=== PATIENT | female | born 1950 | race Caucasian/White ===

== ENCOUNTER → 2017-08-11 11:11 | Outpatient (CLI) | payer MEDICARE, SELFPAY ==
[2017-08-11 12:27] LABS: Absolute Lymphocyte Count 2.14 X10^3/ul (0.83-4.51); Basophil# 0.04 X10^3/uL; Basophil% 0.7 % (0-1); Eosinophil# 0.07 X10^3/uL; Eosinophils% 1.2 % (0-5); Hematocrit 41.2 % (37-47); Hemoglobin 13.8 g/dl (12.0-15.0); Lymphocyte # 2.14 X10^3/ul (4.0); Lymphocyte % 37.1 % (19-41); Mean Corp Hgb Conc 33.5 g/gl (32-36); Mean Corpuscular Hgb 31.4 pg (27.0-32.0); Mean Corpuscular Volume 93.8 fL (81-99); Mean Platelet Vol. 10.4 fl (6.2-12.0); Monocyte# 0.56 X10^3/uL; Monocyte% 9.7 % (0-10); Neutrophil # 2.96 X10^3/uL (2.7-7.7); Neutrophil % 51.3 % (47-70); POSITIVE COUNT NO; POSITIVE DIFFERENTIAL NO; POSITIVE MORPHOLOGY NO; Platelet Count 267 K/mm3 (150-450); RBC Distribution Width CV 12.1 % (11.6-14.6); RBC Distribution Width SD 40.7 fl (35.1-43.9); Red Blood Count 4.39 M/mm3 (4.2-5.4); White Blood Count 5.8 K/mm3 (4.4-11.0)
[2017-08-11 12:43] LABS: Vitamin B12 705 pg/mL (211-911); Vitamin D,25 Hydroxy 22.4 ng/mL (19.95-100.01)
[2017-08-11 12:58] LABS: AST(SGOT) 20 U/L (15-37); Alanine Aminotransfer ALT/SGPT 23 U/L (13-56); Albumin, Serum 3.8 g/dL (3.2-5.0); Alkaline Phosphatase 32 U/L (45-117); Anion Gap 8 (5-15); BUN 17 mg/dL (7-18); BUN/Creat Ratio 26.1 RATIO (10-20); Calcium,Total 8.9 mg/dL (8.5-10.1); Chloride 105 mmol/L (98-107); Cholesterol 178 mg/dL (200); Creatinine, Serum 0.65 mg/dL (0.55-1.02); EST Glomerular Filtration Rate 97 mL/min (>60); Est Glom Filt Rate - Afr Amer 117 mL/min (>60); Ferritin 55 ng/mL (8-252); Globulin 3.9 g/dL (2.2-4.2); Glucose 89 mg/dL (74-106); High Density Lipoprotein 41 mg/dL; Potassium 4.3 mmol/L (3.5-5.1); Protein, Total 7.7 g/dL (6.4-8.2); Sodium Level 141 mmol/L (136-145); Triglycerides 198 mg/dL; Very Low Density Lipoprotein 40 mg/dL (5-40)
== END ==
PROVIDERS: Family Provider Family Medicine; PCP Family Medicine; Visit Provider Family Medicine
DX: Z00.00 Encounter for general adult medical examination without abnormal findings (principal); Z78.9 Other specified health status; E55.9 Vitamin D deficiency, unspecified
CPT/HCPCS: 80053; 80061; 82306; 82607; 82728; 85025

== ENCOUNTER → 2018-04-08 15:32 | Outpatient (CLI) | payer MEDICARE, BC, SELFPAY ==
--- NOTE | 2018-04-08 15:58 | RAD_ITS ---
STUDY: X-RAY CHEST REASON FOR EXAM: Female, 67 years old. Dizziness TECHNIQUE: Frontal and lateral views of the chest COMPARISON: None. FINDINGS: The lungs are hyperinflated, but clear. There are no pleural effusions. There is no pneumothorax. The heart is normal in size. The visualized osseous structures are within normal limits. RAD/Chest PA and Lateral IMPRESSION: No acute thoracic pathology. Electronically Signed: Reuben Le, at 17:14 EDT Tel , Service support ,
[2018-04-08 17:16] LABS: Absolute Lymphocyte Count 2.13 X10^3/ul (0.83-4.51); Absolute Neutrophil Count 5.3 X10^3/uL (2.0-7.7); Basophil# 0.04 X10^3/uL; Basophil% 0.5 % (0-1); Eosinophil# 0.03 X10^3/uL; Eosinophils% 0.4 % (0-5); Hematocrit 39.9 % (37-47); Hemoglobin 13.1 g/dl (12.0-15.0); Lymphocyte # 2.13 X10^3/ul (4.0); Lymphocyte % 26.8 % (19-41); Mean Corp Hgb Conc 32.8 g/gl (32-36); Mean Corpuscular Hgb 31.1 pg (27.0-32.0); Mean Corpuscular Volume 94.8 fL (81-99); Mean Platelet Vol. 9.9 fl (6.2-12.0); Monocyte# 0.44 X10^3/uL; Monocyte% 5.5 % (0-10); Neutrophil % 66.7 % (47-70); Platelet Count 278 K/mm3 (150-450); RBC Distribution Width CV 12.4 % (11.6-14.6); RBC Distribution Width SD 42.6 fl (35.1-43.9); Red Blood Count 4.21 M/mm3 (4.2-5.4)
[2018-04-08 17:25] LABS: POSITIVE COUNT NO; POSITIVE DIFFERENTIAL NO; POSITIVE MORPHOLOGY NO
[2018-04-08 17:33] LABS: AST(SGOT) 17 U/L (15-37); Alanine Aminotransfer ALT/SGPT 18 U/L (13-56); Albumin, Serum 3.7 g/dL (3.2-5.0); Alkaline Phosphatase 33 U/L (45-117); Anion Gap 7 (5-15); BUN 20 mg/dL (7-18); BUN/Creat Ratio 30.4 RATIO (10-20); Calcium,Total 8.9 mg/dL (8.5-10.1); Chloride 106 mmol/L (98-107); Creatinine, Serum 0.66 mg/dL (0.55-1.02); EST Glomerular Filtration Rate 96 mL/min (>60); Est Glom Filt Rate - Afr Amer 116 mL/min (>60); Globulin 3.8 g/dL (2.2-4.2); Glucose 85 mg/dL (74-106); Magnesium 2.2 mg/dL (1.6-2.6); Protein, Total 7.5 g/dL (6.4-8.2); Sodium Level 141 mmol/L (136-145)
[2018-04-30 17:41] LABS: 5-HIAA, UR 3.7 mg/L (Undefined)
[2018-05-01 15:11] LABS: 5-HIAA, 24UR 2.6 mg/24 hr (0.0-14.9)
== END ==
PROVIDERS: Family Provider Family Medicine; PCP Family Medicine; Referring Provider Family Medicine; Visit Provider Family Medicine
DX: R42 Dizziness and giddiness (principal); R23.2 Flushing
CPT/HCPCS: 36415; 71046; 80053; 83497; 83735; 84443; 85025

== ENCOUNTER → 2018-04-23 10:48 | Outpatient (CLI) | payer MEDICARE, BC, SELFPAY ==
--- NOTE | 2018-04-23 10:49 | ECHOD_ITS ---
Reason For Study: arrhythmia Procedure This was a 2D Doppler, Color Flow transthoracic echocardiogram. Exam performed in department. Left Ventricle Normal LV size. Left ventricular systolic function is normal. The estimated ejection fraction is 55 %. Normal diastology for age. No regional wall motion abnormalities noted. Right Ventricle Normal RV size. Normal systolic function. Atria Normal left atrium. Normal right atrium. Mitral Valve Normal mitral valve. Tricuspid Valve Normal tricuspid valve. Mild tricuspid valve insufficiency. Pulmonary artery systolic pressure is 20 mmHg. Aortic Valve Normal aortic valve. Trisinus/trileaflet aortic valve. Pulmonic Valve Normal pulmonic valve. Great Vessels Normal aortic root. The pulmonary artery is normal size. Normal inferior vena cava. Pericardium/Pleural No pericardial effusion. MMode/2D Measurements & Calculations LVIDd: 3.8 cm IVSd: 0.88 cm Ao root diam: 2.8 cm LVIDs: 2.4 cm LVPWd: 0.92 cm LA dimension: 2.6 cm RVDd: 3.1 cm FS: 36.5 % LAV(MOD-bp): 32.4 ml LA A4 area: 13.2 cm2 RA A4 area: 12.5 cm2 LAV(MOD-bp) Indexed: 20.1 ml/m2 LAV(MOD-sp2): 32.5 ml LAV(MOD-sp4): 32.1 ml Doppler Measurements & Calculations MV E max reji: 75.9 cm/sec Lat Peak E' Reji: 9.3 cm/sec Med Peak E' Reji: 9.9 cm/sec MV A max reji: 58.6 cm/sec E/E' lat: 8.2 E/E' med: 7.6 MV E/A: 1.3 Ao V2 max: 94.3 cm/sec LV V1 max: 83.7 cm/sec PA V2 max: 72.5 cm/sec Ao max P.6 mmHg LV V1 max P.8 mmHg TR max reji: 206.9 cm/sec TR max P.1 mmHg Interpretation Summary Normal LV size. Left ventricular systolic function is normal. The estimated ejection fraction is 55 %. Normal diastology for age. Structurally normal valves. Ordering Physician: Maik Tapia Referring Physician: aMsood Cornejo Performed By: Kadie Juarez, RDCS, RVT
== END ==
PROVIDERS: Family Provider Family Medicine; PCP Family Medicine; Referring Provider Internal Medicine Cardiovascular Disease; Visit Provider Internal Medicine Cardiovascular Disease
DX: R55 Syncope and collapse (principal)
CPT/HCPCS: 93306

== ENCOUNTER 2018-07-22 10:03 | Emergency (ER) | payer MEDICARE, BC, SELFPAY ==
[2018-07-22 10:04] VITALS: BP 146/64; PULSE 137; RESP 16; TEMP 36.9; O2SAT 96; BMI 20.5
--- NOTE | 2018-07-22 10:34 | ED.VISSUMM ---
- ER Visit Summary Date of Service: 07/22/18 Chief Complaint: Aspirated a pill History of Present Illness: The patient is a 68 F she was taken vitamins. She has only aspirated 1 of the pills in her lung. Said it was irritating and eventually she coughs it up basically whole other than it dissolved small amount. Currently says he feels much better. Denies any chest pain. No shortness of breath. Physical Examination: Well-appearing older female. Vital signs are stable. She is afebrile. Initially her pulse was elevated she says she felt anxious. HEENT exam unremarkable. Posterior pharynx normal. Neck nontender. No lymphadenopathy. Lungs clear to auscultation bilaterally. No rales, rhonchi or wheezing. No distress. Heart regular rhythm rate about 120 no murmur. Abdomen soft and nontender. Normal bowel sounds no peritoneal signs. Remedies moves all 4. No edema. Neurologically she is awake and alert. No focal motor deficits. Test Results: Normal sinus rhythm rate of 76 no acute process. Emergency Department Course and Treatment: Patient was tachycardic when she arrived. Most likely with some anxiety. The tachycardia seemed to resolve. We did obtain EKG which was unremarkable. Treatment Plan: Follow-up with your doctor as needed Disposition: Discharge Impression: Acute pill aspiration resolved with coughing This note was generated with [employer] dictation software. It may contain incorrect words, spelling, and punctuation that were not noted in review of the chart prior to signing ED Disposition - Plan for ED Patient: Chief Complaint: Foreign Body Referrals: Masood Cornejo MD [Primary Care Provider] -
--- NOTE | 2018-07-22 10:40 | ED.DCSUM_ITS ---
- ER Visit Summary Date of Service: 07/22/18 Chief Complaint: Aspirated a pill History of Present Illness: The patient is a 68 F she was taken vitamins. She has only aspirated 1 of the pills in her lung. Said it was irritating and eventually she coughs it up basically whole other than it dissolved small a mount. Currently says he feels much better. Denies any chest pain. No shortness of breath. Physical Examination: Well-appearing older female. Vital signs are stable. She is afebrile. Initially her pulse was elevated she says she felt anxious. HEENT exam unremarkable. Posterior pharynx normal. Neck nontender. No lymphadenopathy. Lungs clear to auscultation bilaterally. No rales, rhonchi or wheezing. No distress. Heart regular rhythm rate about 120 no murmur. Abdomen soft and nontender. Normal bowel sounds no peritoneal signs. Remedies moves all 4. No edema. Neurologically she is awake and alert. No focal motor deficits. Test Results: Normal sinus rhythm rate of 76 no acute process. Emergency Department Course and Treatment: Patient was tachycardic when she arrived. Most likely with some anxiety. The tachycardia seemed to resolve. We did obtain EKG which was unremarkable. Treatment Plan: Follow-up with your doctor as needed Disposition: Discharge Impression: Acute pill aspiration resolved with coughing This note was generated with [employer] dictation software. It may contain incorrect words, spelling, and punctuation that were not noted in review of the chart prior to signing ED Disposition - Plan for ED Patient: Chief Complaint: Foreign Body Referrals: Masood Cornejo MD [Primary Care Provider] -
--- NOTE | 2018-07-22 10:40 | EKG12_ITS ---
Test Reason : TACHYCARDIA Blood Pressure : / mmHG Vent. Rate : 076 BPM Atrial Rate : 076 BPM P-R Int : 152 ms QRS Dur : 074 ms QT Int : 384 ms P-R-T Axes : 074 075 068 degrees QTc Int : 432 ms Normal sinus rhythm Normal ECG Confirmed by HUY GALVAN, JENNIFER ([id number]), photograph editor NESSA PLEITEZ ([id number]) on 07/27/2018 9:08:32 AM Referred By: SAROJ Confirmed By:JENNIFER SON MD
[2018-07-22 11:06] VITALS: BP 121/59; PULSE 77; RESP 15; O2SAT 99
--- NOTE | 2018-07-22 11:06 | ED.DEP ---
ED Disposition - Plan for ED Patient: Disposition: Home or Assisted Living Chief Complaint: Foreign Body Instructions: ED Obstruction Airway Removed Referrals: Masood Cornejo MD [Primary Care Provider] - As Needed Additional Instructions: Follow-up with your doctor as needed.
--- OUTSIDE RECORDS SUMMARY | 2018-09-26 07:27 | XMS RPT_ITS ---
:1950 Author Organization OHIP Care Team Providers Name Role Phone Cornejo, Masood Primary Care Unavailable Kingsley Mccormack Attending Unavailable Cornejo, Masood Attending Unavailable Cornejo, Masood Primary Care Unavailable Regina, [place] Attending Unavailable Cornejo, Masood Referring Unavailable Cornejo, Masood Attending Unavailable Cornejo, Masood Referring Unavailable Cornejo, Masood Primary Care Unavailable Regina, Maik Attending Unavailable Regina, [place] Referring Unavailable Cornejo, Masood Primary Care Unavailable Regina, Maik Attending Unavailable Regina, Maik Referring Unavailable Cornejo, Masood Primary Care Unavailable Regina, [place] Consulting Unavailable PROBLEMS PROBLEMS DATE TYPE CONDITION / CODE ATTENDING STATUS SOURCE 04/23/2018 Unknown R55 - Syncope and Regina, [place] Active [facility] collapse / Community R55(ICD-10) Hospital Repository 04/08/2018 Unknown R42 - Dizziness Cornejo, Masood Active [facility] and giddiness / Community R42(ICD-10) Hospital Repository 04/08/2018 Unknown R00.2 - Maik Son Active [facility] Palpitations / Community R00.2(ICD-10) Hospital Repository PROCEDURES PROCEDURES No Procedure Records FoundRESULTS RESULTS 12 LEAD ELECTROCARDIOGRAM Observed: 07/27/2018 Status: F Source: [place] 9:08 AM [facility] Cardiovascular Services [address] [place] [address] 12 Lead EKG 07/22/18 1101 MR#: [id number] Acct: [id number] Name: GABRIELLE SCHWARTZ Rep #: [id number] : 1950 68 From: Maik Son MD Attending Dr: Status: DEP ER Ordering Dr: Kingsley Mccormack MD Date: 07/22/18 Location: ED Sex: F C Admitted: Test Reason : TACHYCARDIA Blood Pressure : / mmHG Vent. Rate : 076 BPM Atrial Rate : 076 BPM P-R Int : 152 ms QRS Dur : 074 ms QT Int : 384 ms P-R-T Axes : 074 075 068 degrees QTc Int : 432 ms Normal sinus rhythm Normal ECG Confirmed by MAIK SON MD ([id number]), editor newspaper NESSA PLEITEZ ([id number]) on 07/27/2018 9:08:32 AM Referred By: SAROJ Confirmed By:MAIK SON MD 07/27/18 0908 Date Maik Son MD CC: Masood Cornejo MD; Kingsley Mccormack MD Signed EMERGENCY DEPARTMENT Observed: 07/22/2018 Status: F Source: [place] SUMMARY 4:04 PM [facility] Medical Records Department [address] [place] [address] Emergency Department Summary 07/22/18 1034 MR#: [id number] Acct: [id number] Name: GABRIELLE SCHWARTZ Rep #: [id number] : 1950 68 From: Kingsley Mccormack MD PCP: Masood Cornejo MD Status: DEP ER - ER Visit Summary Date of Service: 07/22/18 Chief Complaint: Aspirated a pill History of Present Illness: The patient is a 68 F she was taken vitamins. She has only aspirated 1 of the pills in her lung. Said it was irritating and eventually she coughs it up basically whole other than it dissolved small amount. Currently says he feels much better. Denies any chest pain. No shortness of breath. Physical Examination: Well-appearing older female. Vital signs are stable. She is afebrile. Initially her pulse was elevated she says she felt anxious. HEENT exam unremarkable. Posterior pharynx normal. Neck nontender. No lymphadenopathy. Lungs clear to auscultation bilaterally. No rales, rhonchi or wheezing. No distress. Heart regular rhythm rate about 120 no murmur. Abdomen soft and nontender. Normal bowel sounds no peritoneal signs. Remedies moves all 4. No edema. Neurologically she is awake and alert. No focal motor deficits. Test Results: Normal sinus rhythm rate of 76 no acute process. Emergency Department Course and Treatment: Patient was tachycardic when she arrived. Most likely with some anxiety. The tachycardia seemed to resolve. We did obtain EKG which was unremarkable. Treatment Plan: Follow-up with your doctor as needed Disposition: Discharge Impression: Acute pill aspiration resolved with coughing This note was generated with 22seeds dictation software. It may contain incorrect words, spelling, and punctuation that were not noted in review of the chart prior to signing ED Disposition - Plan for ED Patient: Chief Complaint: Foreign Body Referrals: Masood Cornejo MD [Primary Care Provider] - What to do if you have Problems For any increased pain, shortness of breath, bleeding, nausea or vomiting, chest pain, or any unexpected problems, contact your Primary Care Provider. Call [facility] ([phone]) or report to the closest Emergency Room. Call 911 if necessary. 07/22/18 1604 <Electronically signed by Kingsley Mccormack MD> Date Kingsley Mccormack MD Cosigner Signature (If Indicated): Date CC: Masood Cornejo MD DISCHARGE INSTRUCTION Observed: 07/22/2018 Status: F Source: [place] 4:04 PM [facility] [place] [facility] Medical Records Department [address] [address] Discharge Instruction 07/22/18 1106 MR#: [id number] Acct: [id number] Name: GABRIELLE SCHWARTZ Rep #: [id number] : 1950 68 From: Kingsley Mccormack MD PCP: Masood Cornejo MD Status: DEP ER ED Disposition - Plan for ED Patient: Disposition: Home or Assisted Living Chief Complaint: Foreign Body Instructions: ED Obstruction Airway Removed Referrals: Masood Cornejo MD [Primary Care Provider] - As Needed Additional Instructions: Follow-up with your doctor as needed. What to do if you have Problems For any increased pain, shortness of breath, bleeding, nausea or vomiting, chest pain, or any unexpected problems, contact your Primary Care Provider. Call [facility] ([phone]) or report to the closest Emergency Room. Call 911 if necessary. 07/22/18 1604 <Electronically signed by Kingsley Mccormack MD> Date Kingsley Mccormack MD Cosigner Signature (If Indicated): Date CC: Masood Cornejo MD 5-HIAA 24 HR UR Collected: 04/26/2018 Status: F Source: [place] 7:30 AM [facility] [place] TYPE CODE TESTS RESULT OUT OF RANGE REFERENCE UNITS LAB L3600.2600 Undefined mg/L Normal 5-HIAA,UR 3.7 LAB L3600.2700 0.0-14.9 mg/24 hr Normal 2.6 5-HIAA,U24 Result Comment: This test was developed and its performance characteristics determined by [facility]. It has not been cleared or approved by the Food and Drug Administration. Performed at: [address], [place], [place] [id number] [employer] Sales Unit Sales Leader: Garett Alvarez MD, Phone: [phone] Performed By: #### L3600.2500 #### [facility] (refer to report for specific site) refer to report for address and phone number ECHOCARDIOGRAM COMPLETE Observed: 04/23/2018 Status: F Source: [place] 1:07 PM [facility] [place] [facility] Cardiovascular Services [address] [place] [address] Echo Complete 04/23/18 1051 MR#: [id number] Acct: [id number] Name: GABRIELLE SCHWARTZ Rep #: [id number] : 1950 67 From: Maik Son MD Attending Dr: Maik Son MD Status: REG CLI Ordering Dr: Maik Son MD Date: 04/23/18 Location: [facility] Sex: F C Admitted: Reason For Study: arrhythmia Procedure This was a 2D Doppler, Color Flow transthoracic echocardiogram. Exam performed in department. Left Ventricle Normal LV size. Left ventricular systolic function is normal. The estimated ejection fraction is 55 %. Normal diastology for age. No regional wall motion abnormalities noted. Right Ventricle Normal RV size. Normal systolic function. Atria Normal left atrium. Normal right atrium. Mitral Valve Normal mitral valve. Tricuspid Valve Normal tricuspid valve. Mild tricuspid valve insufficiency. Pulmonary artery systolic pressure is 20 mmHg. Aortic Valve Normal aortic valve. Trisinus/trileaflet aortic valve. Pulmonic Valve Normal pulmonic valve. Great Vessels Normal aortic root. The pulmonary artery is normal size. Normal inferior vena cava. Pericardium/Pleural No pericardial effusion. MMode/2D Measurements AND Calculations LVIDd: 3.8 cm IVSd: 0.88 cm Ao root diam: 2.8 cm LVIDs: 2.4 cm LVPWd: 0.92 cm LA dimension: 2.6 cm RVDd: 3.1 cm FS: 36.5 % LAV(MOD-bp): 32.4 ml LA A4 area: 13.2 cm2 RA A4 area: 12.5 cm2 LAV(MOD-bp) Indexed: 20.1 ml/m2 LAV(MOD-sp2): 32.5 ml LAV(MOD-sp4): 32.1 ml Doppler Measurements AND Calculations MV E max reji: 75.9 cm/sec Lat Peak E' Reji: 9.3 cm/sec Med Peak E' Reji: 9.9 cm/sec MV A max reji: 58.6 cm/sec E/E' lat: 8.2 E/E' med: 7.6 MV E/A: 1.3 Ao V2 max: 94.3 cm/sec LV V1 max: 83.7 cm/sec PA V2 max: 72.5 cm/sec Ao max P.6 mmHg LV V1 max P.8 mmHg TR max reji: 206.9 cm/sec TR max P.1 mmHg Interpretation Summary Normal LV size. Left ventricular systolic function is normal. The estimated ejection fraction is 55 %. Normal diastology for age. Structurally normal valves. Ordering Physician: Maik Son Referring Physician: Masood Cornejo Performed By: Kadie Juarez, RDCS, RVT 04/23/18 1306 Date Maik Son MD CC: Maik Son MD; Masood Cornejo MD Date Dictated: 04/23/18 1051 Date Transcribed: 04/23/18 1306 Auto Dealer: Signed CHEST PA AND LATERAL Observed: 04/08/2018 Status: F Source: [place] 3:58 PM [facility] [place] [facility] Imaging Services [address] [place] [address] Chest PA and Lateral MR#: [id number] Acct: [id number] Name: GABRIELLE SCHWARTZ Rep #: [id number] : 1950 F 67 From: Reuben Le MD PCP: Masood Cornejo MD Status: REG CLI Study: Chest PA and Lateral Date of Exam: 04/08/18 Exam# [id number] Ordering Dr: Masood Cornejo MD STUDY: X-RAY CHEST REASON FOR EXAM: Female, 67 years old. Dizziness TECHNIQUE: Frontal and lateral views of the chest COMPARISON: None. FINDINGS: The lungs are hyperinflated, but clear. There are no pleural effusions. There is no pneumothorax. The heart is normal in size. The visualized osseous structures are within normal limits. RAD/Chest PA and Lateral IMPRESSION: No acute thoracic pathology. Electronically Signed: Reuben Le, at 17:14 EDT Tel , Service support , CC: Masood Cornejo MD Auto Dealer: Signed CBC W/DIFF, AUTOMATED Collected: 04/08/2018 Status: F Source: [place] 3:44 PM [facility] [place] TYPE CODE TESTS RESULT OUT OF RANGE REFERENCE UNITS LAB L100.1000 4.4-11.0 K/mm3 Normal WBC 8.0 LAB L100.1200 4.2-5.4 M/mm3 Normal RBC 4.21 LAB L100.1300 12.0-15.0 g/dl Normal HGB 13.1 LAB L100.1400 37-47 % Normal HCT 39.9 LAB L100.1500 81-99 fL Normal MCV 94.8 LAB L100.1600 27.0-32.0 pg Normal MCH 31.1 LAB L100.1700 32-36 g/gl Normal MCHC 32.8 LAB L100.1810 11.6-14.6 % Normal RDW CV 12.4 LAB L100.1820 35.1-43.9 fl Normal RDW SD 42.6 LAB L100.1900 150-450 K/mm3 Normal PLT 278 LAB L100.2000 6.2-12.0 fl Normal MPV 9.9 LAB L100.2100 47-70 % Normal NEUT% 66.7 LAB L100.2200 19-41 % Normal LY% 26.8 LAB L100.2300 0-10 % Normal MONO% 5.5 LAB L100.2400 0-5 % Normal EO% 0.4 LAB L100.2500 0-1 % Normal BASO% 0.5 LAB L100.2550 0.0-0.9 % Normal IM GRAN % 0.100 Result Comment: IG% - Immature Granulocytes (promyelocytes, myelocytes and metamyelocytes) > 1% indicates that a LEFT SHIFT is Present. LAB L100.2620 2.0-7.7 X10 3/uL Normal Absolute Neut 5.3 LAB L100.2720 0.83-4.51 X10 3/ul Normal Absolute Lymph 2.13 Performed By: #### L100.0100 #### [facility] [place], [address] COMPREHENSIVE METABOLIC Collected: 04/08/2018 Status: F Source: [place] 3:44 PM [facility] [place] TYPE CODE TESTS RESULT OUT OF RANGE REFERENCE UNITS LAB L501.0100 74-106 mg/dL Normal GLU 85 Result Comment: Please note revised GLUCOSE reference range effective 2017. LAB L501.1000 7-18 mg/dL High BUN 20 LAB L501.1100 0.55-1.02 mg/dL Normal CREAT,SERUM 0.66 Result Comment: The validity of the calculated GFR AND GFRAA in patients over 70 years has not been determined. Clinical correlation is essential. LAB L501.1110 >60 mL/min Normal EST GFR 96 Result Comment: Non- GFR Calc LAB L501.1115 >60 mL/min Normal EST GFR - AA 116 Result Comment: GFR Calc LAB L501.1300 10-20 RATIO High BUN/CRE 30.4 LAB L501.1500 6.4-8.2 g/dL T Normal PROT 7.5 LAB L501.1800 3.2-5.0 g/dL Normal ALB 3.7 LAB L501.1950 2.2-4.2 g/dL Normal GLOB 3.8 LAB L501.2000 0.9-2.4 RATIO Normal A/G 1.0 LAB L501.2200 8.5-10.1 mg/dL CA Normal 8.9 LAB L501.4100 15-37 U/L Normal AST 17 LAB L501.4305 45-117 U/L Low ALK P 33 LAB L501.4405 13-56 U/L Normal ALT 18 LAB L501.4600 0.20-1.00 mg/dL T Normal BILI 0.30 LAB L501.5300 136-145 mmol/L NA Normal 141 LAB L501.5600 3.5-5.1 mmol/L K Normal 4.0 LAB L501.5900 98-107 mmol/L CL Normal 106 LAB L501.6100 21.0-32.0 mmol/L Normal CO2 28.0 LAB L501.6200 5-15 Normal GAP 7 Performed By: #### L500.4050, L501.5200, L501.9520 #### [facility] [address] [place], [address] MAGNESIUM Collected: 04/08/2018 Status: F Source: [place] 3:44 PM [facility] [place] TYPE CODE TESTS RESULT OUT OF RANGE REFERENCE UNITS LAB L501.5200 1.6-2.6 mg/dL Normal MG 2.2 Performed By: #### L500.4050, L501.5200, L501.9520 #### [facility] [address] [place], [address] THYROID STIM HORMONE Collected: 04/08/2018 Status: F Source: [place] (TSH) 3:44 PM [facility] [place] [facility] TYPE CODE TESTS RESULT OUT OF RANGE REFERENCE UNITS LAB L501.9520 0.358-3.74 uIU/mL Normal TSH 1.00 Performed By: #### L500.4050, L501.5200, L501.9520 #### [facility] [address] [place], [address] CARDIOLOGY VISIT Observed: 04/08/2018 Status: F Source: [place] REPORT 3:16 PM [facility] [place] [facility] [address] [place] [address] OFFICE VISIT Date of Service: 04/08/18 MR#: [id number] Acct: [id number] Name: GABRIELLE SCHWARTZ Rep #: [id number] : 1950 Provider: Maik Son MD Age/Sex: 67/F Location: [facility] [place] Status: Signed HPI HPI Chief Complaint: Initial visit Details: GABRIELLE SCHWARTZ, is a 67 F who presents to the office today for an initial visit. She is a pleasant lady with no previous cardiac symptoms who has had 2 episodes of dizziness near fainting spells as well as associated with the flushing of her face. She says this lasts approximately 30 seconds. It happens once while she was driving. There is usually no chest pain or paroxysmal nocturnal dyspnea or pedal edema. She is otherwise active and not sedentary. She does not have a history of diabetes and does not think that she was hypoglycemic. She did in the past have an evaluation with an echocardiogram in 2010 demonstrated ejection fraction of 60%, stress test demonstrating no evidence of ischemia and Holter monitor in 2010. She has not had any jacob syncopal spells from the above. An electrocardiogram which was done today demonstrates normal sinus rhythm with a rate of 78 bpm no acute changes her physical exam demonstrates clear lung freitas regular rate and rhythm no pedal edema her blood pressure is noted to be excellent. Intake Vital Signs04/08/18 Height 5 ft 5.5 in 04/08/18 Weight: 124 lb 04/08/18 Body Mass Index (BMI) 20.3 04/08/18 Blood Pressure 110/60 04/08/18 Respiratory Rate 16 04/08/18 Pulse Rate 74 Intake Visit Reasons: PCP ref'd dizzy, palps, flushed face, monitor Allergies clindamycin Allergy (Verified 11/05/14 15:13) Hives Medications cholecalciferol (vitamin D3) 2,000 unit capsule 2,000 unit PO DAILY 04/08/18 [History Confirmed 04/08/18] mecobalamin (vitamin B12) 1,000 mcg disintegrating tablet,sublingual 1,000 mcg SUBLINGUAL DAILY 04/08/18 [History Confirmed 04/08/18] [facility] Surgical History History of dilatation and curettage (Resolved) History of hysteroscopy (Resolved) History of tonsillectomy (Resolved) Family History Mother Heart disease Syncope, PPM Grandfather CAD (coronary artery disease) Social History Smoking Status: Never smoker ROS Const Const: Negative for fatigue, weakness, difficulty sleeping, frequent falls, excessive sweating or headache(s) Eyes Eyes: Negative for loss of peripheral vision, transient loss of vision, blurry vision, tunnel vision or double vision ENT ENT: Negative for headache(s), dizziness, Nosebleed/epistaxis or balance problems Cardio Chest Pain: No Palpitations: Yes (2 episodes w/ dizziness, flushed once in February and 1 today while driving) feels like its: fast, skipping Edema: None Muscle aches with walking: None Resp Respiratory: Negative for SOB with activity, SOB at rest, SOB orthopnea\SOB lying down, paroxysmal nocturnal dyspnea or Cough GI GI: Negative nausea, heartburn, black,tarry stools or vomiting : Negative for hematuria Musc Musc: Negative for balance problems, muscle aches/ myalgia, muscle weakness or joint pain Skin Skin: Negative non-healing lesions, unusual bruising or rash Neuro Neuro: Negative for weakness, frequent falls, headache(s), blurry vision, double vision, dizziness, lightheadedness, orthostatic symptoms, near syncope, syncope or lack of coordination Justin Hematologic/Lymphatic: Negative for easy bruising or easy bleeding Endo Endo: Negative for fatigue, excessive sweating or increased thirst/drinking Psych Psych: Negative for anxiety or depression Allergy Allergy/Immunology: Negative for hives, Negative for rash Cardiology Exam Const Appearance: cooperative, healthy appearing, well developed, well groomed and no acute distress Nutritional Appearance: well nourished and average body habitus Orientation: alert, awake and oriented x3 Head Head: normal to inspection, normocephalic and atraumatic Ears: hearing grossly normal bilaterally and external ears normal Nose: external nose normal, nasal mucous membranes and turbinates normal, nares normal, septum normal, no nasal discharge Face and Sinus: face symmetric Mouth: oral mucosae normal, tongue normal, oropharynx normal and moist mucous membranes Teeth and gingiva: dentition normal Throat: posterior oropharynx normal, tonsils normal and uvula midline Eyes General: appearance normal, both eyes and all related structures Eyelids: eyelids normal Conjunctivae: conjunctivae normal Pupils: PERRL, normal by confrontation and accommodation normal EOM: EOM intact bilaterally Neck Neck: normal visual inspection, trachea midline and no JVD JVD: +5 Carotids: normal carotid upstroke and bounding pulses Chest Chest inspection: normal inspection of the chest, symmetric chest movement and normal respiratory effort Auscultation: Bilateral: Clear to Auscultation Cardio Palpation: normal PMI Rate: regular rate Rhythm: regular rhythm Heart sounds: S1 normal, S2 normal and normal, physiologic split S2; negative rub, gallop or murmur GI GI: normal to inspection, soft, no hepatosplenomegaly and bowel sounds present Neuro General: alert, awake, oriented x3, no focal sensory deficit, gait normal and moves all extremities Skin Skin: no rashes or lesions noted Extremities Pulses: Normal: Right Femoral Pulse, Left Femoral Pulse, Right Dorsalis Pedis Pulse, Left Dorsalis Pedis Pulse, Right Posterior Tibial Pulse, Left Posterior Tibial Pulse, Right Radial Pulse, Left Radial Pulse Lower Extremity Edema: None: Bilateral Musculoskel Musculoskeletal: No joint tenderness Psych Psychological: normal affect Assessment AND Plan 1. Near syncope R55 Plan She did have an episode of near syncope. My recommendation at this time is that this is likely a vagal vasodepressor episode. She tells me that you are obtaining evaluation for urine metanephrines. I would recommend that we obtain an echocardiogram to assess her left ventricular function if the above is normal my recommendation will be watchful waiting keeping up with her fluids. Certainly the premonition that she has does suggest to me that this may most likely be a vagal event. I would await the results of your other blood tests as well. Thank you for allowing me to participate in her care. Orders Orders: Plan Detail Other Orders Orders: Follow Up prn Coding Level of Care Code Off vis,new,level 4 Diagnoses Near syncope R55 Coding Level of Care Code Off vis,new,level 4 Diagnoses Near syncope R55 04/08/18 1516 <Electronically signed by Maik Son MD> Date Maik Son MD Cosigner Signature: Date (if applicable) CC: Masood Cornejo MD 12 LEAD EKG PERFORMED Observed: 04/08/2018 Status: F Source: [place] [facility] [place] 2:52 PM [facility] [place] [address] [address] 12 Lead EKG performed by [facility] 04/08/18 1452 MR#: [id number] Acct: [id number] Name: GABRIELLE SCHWARTZ Rep #: [id number] : 1950 67 From: Maik Son MD Attending Dr: Maik Son MD Status: DEP AMB Ordering Dr: Maik Son MD Date: 04/08/18 Location: [facility] [place] Sex: F C Admitted: [facility]/12 Lead EKG performed by [facility] ECG Report Interpretation Sinus Rhythm -Nonspecific ST depression -Nondiagnostic. ABNORMAL Electronically signed on 06/10/2018 at 16:28 by Maik Son Software Version [id number] 06/10/18 1631 Date Maik Son MD CC: Masood Cornejo MD Date Dictated: 04/08/181451 Date Transcribed: 04/08/181451 Auto Dealer: [place] Signed CBC W/DIFF, AUTOMATED Collected: 08/11/2017 Status: F Source: [place] 11:13 AM [facility] [place] [facility] Order Comment: Order Date: 08/11/17 Order Info: [id number] - CBCD TYPE CODE TESTS RESULT OUT OF RANGE REFERENCE UNITS LAB L100.1000 4.4-11.0 K/mm3 Normal WBC 5.8 LAB L100.1200 4.2-5.4 M/mm3 Normal RBC 4.39 LAB L100.1300 12.0-15.0 g/dl Normal HGB 13.8 LAB L100.1400 37-47 % Normal HCT 41.2 LAB L100.1500 81-99 fL Normal MCV 93.8 LAB L100.1600 27.0-32.0 pg Normal MCH 31.4 LAB L100.1700 32-36 g/gl Normal MCHC 33.5 LAB L100.1810 11.6-14.6 % Normal RDW CV 12.1 LAB L100.1820 35.1-43.9 fl Normal RDW SD 40.7 LAB L100.1900 150-450 K/mm3 Normal PLT 267 LAB L100.2000 6.2-12.0 fl Normal MPV 10.4 LAB L100.2100 47-70 % Normal NEUT% 51.3 LAB L100.2200 19-41 % Normal LY% 37.1 LAB L100.2300 0-10 % Normal MONO% 9.7 LAB L100.2400 0-5 % Normal EO% 1.2 LAB L100.2500 0-1 % Normal BASO% 0.7 LAB L100.2550 0.0-0.9 % Normal IM GRAN % 0.000 Result Comment: IG% - Immature Granulocytes (promyelocytes, myelocytes and metamyelocytes) > 1% indicates that a LEFT SHIFT is Present. LAB L100.2620 2.0-7.7 X10 3/uL Normal Absolute Neut 3.0 LAB L100.2720 0.83-4.51 X10 3/ul Normal Absolute Lymph 2.14 Performed By: #### L100.0100, L503.0105, L506.1000, L500.4050, L500.4100, L503.6550 #### [facility] [address] [place], [place], [address] VITAMIN B12 Collected: 08/11/2017 Status: F Source: [place] 11:13 AM [facility] [place] [facility] Order Comment: Order Date: 08/11/17 Order Info: [id number] - B12 Order Info: [id number] - VITD25 TYPE CODE TESTS RESULT OUT OF RANGE REFERENCE UNITS LAB L503.0105 211-911 pg/mL Normal Vitamin B12 705 Performed By: #### L100.0100, L503.0105, L506.1000, L500.4050, L500.4100, L503.6550 #### [facility] [address] [place], [place], [address] VITAMIN D,25 HYDROXY Collected: 08/11/2017 Status: F Source: [place] 11:13 AM [facility] [place] [facility] Order Comment: Order Date: 08/11/17 Order Info: [id number] - B12 Order Info: 25571-9 - VITD25 TYPE CODE TESTS RESULT OUT OF RANGE REFERENCE UNITS LAB L506.1000 19.95-100.01 ng/mL Normal Vitamin D 22.4 25-OH Result Comment: Vitamin D 25(OH) Status Range Deficiency <20 ng/mL (50nmol/L) Insuffciency 20 - 30 ng/mL (50 - 75 nmol/L) Sufficiency 30 - 100 ng/mL (75 - 250 nmol/L) Toxicity >100 ng/mL (>250 nmol/L) Performed By: #### L100.0100, L503.0105, L506.1000, L500.4050, L500.4100, L503.6550 #### [facility] [place], [address] COMPREHENSIVE METABOLIC Collected: 08/11/2017 Status: F Source: [place] 11:13 AM [facility] [place] [facility] Order Comment: Order Date: 08/11/17 Order Info: [id number] - CMP Order Info: [id number] - LIPID Order Info: 2276-4 - MIRIAM TYPE CODE TESTS RESULT OUT OF RANGE REFERENCE UNITS LAB L501.0100 74-106 mg/dL Normal GLU 89 LAB L501.1000 7-18 mg/dL Normal BUN 17 LAB L501.1100 0.55-1.02 mg/dL Normal 0.65 CREAT,SERUM Result Comment: The validity of the calculated GFR AND GFRAA in patients over 70 years has not been determined. Clinical correlation is essential. LAB L501.1110 >60 mL/min Normal EST GFR 97 Result Comment: Non- GFR Calc LAB L501.1115 >60 mL/min Normal EST GFR - AA 117 Result Comment: GFR Calc LAB L501.1300 10-20 RATIO High BUN/CRE 26.1 LAB L501.1500 6.4-8.2 g/dL T Normal PROT 7.7 LAB L501.1800 3.2-5.0 g/dL Normal ALB 3.8 LAB L501.1950 2.2-4.2 g/dL Normal GLOB 3.9 LAB L501.2000 0.9-2.4 RATIO Normal A/G 1.0 LAB L501.2200 8.5-10.1 mg/dL CA Normal 8.9 LAB L501.4100 15-37 U/L Normal AST 20 LAB L501.4305 45-117 U/L Low ALK P 32 LAB L501.4405 13-56 U/L Normal ALT 23 Result Comment: Please note revised ALT reference range effective 2017. LAB L501.4600 0.20-1.00 mg/dL Normal T BILI 0.40 LAB L501.5300 136-145 mmol/L Normal NA 141 LAB L501.5600 3.5-5.1 mmol/L Normal K 4.3 LAB L501.5900 98-107 mmol/L Normal CL 105 LAB L501.6100 21.0-32.0 mmol/L Normal CO2 28.0 LAB L501.6200 5-15 Normal GAP 8 Performed By: #### L100.0100, L503.0105, L506.1000, L500.4050, L500.4100, L503.6550 #### [facility] [address] [place], [place], [id number] LIPID PROFILE Collected: 08/11/2017 Status: F Source: [place] 11:13 AM [facility] [place] [facility] Order Comment: Order Date: 08/11/17 Order Info: [id number] - CMP Order Info: [id number] - LIPID Order Info: [id number] - MIRIAM TYPE CODE TESTS RESULT OUT OF RANGE REFERENCE UNITS LAB L501.4900 200 mg/dL Normal CHOL 178 Result Comment: <200 mg/dL Desirable 200-240 mg/dL Borderline >240 mg/dL High Risk LAB L501.5000 mg/dL Normal TRIG 198 Result Comment: The drugs N-Acetylcysteine and Metamizole may falsely depress this assay. Serum Triglycerides Reference Interval Normal <150 mg/dL Borderline high 150 - 199 mg/dL High 200 - 499 mg/dL Very High > or = 500 mg/dL LAB L501.6400 mg/dL Normal HDL 41 Result Comment: The drugs N-Acetylcysteine and Metamizole may falsely depress this assay. Reference Range HDL <40 mg/dL Low HDL Cholesterol HDL >or= 60 mg/dL High HDL Cholesterol LAB L501.6500 0-130 mg/dL Normal LDL 97 LAB L501.6600 5-40 mg/dL Normal VLDL 40 Performed By: #### L100.0100, L503.0105, L506.1000, L500.4050, L500.4100, L503.6550 #### [facility] [address] [place], [address] FERRITIN Collected: 08/11/2017 Status: F Source: [place] 11:13 AM [facility] [place] [facility] Order Comment: Order Date: 08/11/17 Order Info: [id number] - CMP Order Info: [id number] - LIPID Order Info: [id number] - MIRIAM TYPE CODE TESTS RESULT OUT OF RANGE REFERENCE UNITS LAB L503.6550 8-252 ng/mL Normal FERRITIN 55 Performed By: #### L100.0100, L503.0105, L506.1000, L500.4050, L500.4100, L503.6550 #### [facility] [address] [place], [address] ALLERGIES ALLERGIES DATE TYPE / CODE NAME / CODE REACTION SEVERITY SOURCE 07/22/2018 Drug clindamycin/ Hives Unknown [facility] Allergy/4160 [id number]( Hospital [address](SNOMED XNORM) Repository CT) ENCOUNTERS ENCOUNTERS ADMIT/DISCHARGE ACCOUNT ADMITTING ENCOUNTER LOCATION SOURCE NUMBER CLASS 07/22/2018/ [id number] Emergency [place] Benji 9 9 [facility] ing:ED Repository 04/23/2018 [id number] Ambulatory BMSBuilding:B Benji 3 MS.CF.[facility] Repository 04/23/2018 [id number] Ambulatory [place] 3 [facility] ing:[facility]S Repository 04/08/2018 [id number] Ambulatory [place] 8 [facility] ing:LAB Repository 04/08/2018/ [id number] Ambulatory BMSBuilding:B Benji 8 8 MS.Man [facility] Repository 08/11/2017 [id number] Ambulatory [place] 4 [facility] ing:MFPLAB Repository PAYERS PAYERS ENCOUNTER GUARANTOR PAYER SUBSCRIBER SOURCE 07/22/2018 MERRY S Primary MERRY S [place] [id number] RICHARD Insurance:MEDICARE GENTRYDOB: [place] PART A [facility] [id number] [address]Umh: (330) Number: Repository [phone] HP) [id number] Date:2018-07-22 07/22/2018 Secondary MERRY S [place] Insurance:ANTHEM GENTRYDOB: [facility] [id number] Hospital Number: Repository [id number] Date:[id number] [address]XZ: 07/22/2018 Tertiary NOT GIVENUNK [place] Insurance:SELF PAY [facility] Hospital Number: Effective Repository Date:2018-07-22 04/23/2018 MERRY S Primary MERRY S [place] [id number] RICHARD Insurance:MEDICARE GENTRYDOB: [place] PART A [facility] [id number] Hospital [address]Usw: (330) Number: Repository [phone] () [id number] Date:2018-04-08 04/23/2018 Secondary MERRY S [place] Insurance:ANTHEM GENTRYDOB: [facility] [id number] Hospital Number: Repository [id number] Date:0007-25-00[address] [address]HS: 04/23/2018 Tertiary NOT GIVENUNK [place] Insurance:SELF PAY [facility] [place]) Number: Effective Repository Date:2018-04-23 04/23/2018 MERRY S Primary MERRY S [place] [id number] RICHARD Insurance:MEDICARE GENTRYDOB: [place] PART [place] [facility] [id number] [id number]: [phone]) Number: Repository [phone] () [id number] Date:2018-04-08 04/23/2018 Secondary MERRY S [place] Insurance:ANTHEM GENTRYDOB: [facility] [id number] Hospital Number: Repository [id number] Date:4291-31-00[address] [address]RW: 04/23/2018 Tertiary NOT GIVENUNK [place] Insurance:SELF PAY [facility] Number: Effective Repository Date:2018-04-08 04/08/2018 MERRY S Primary MERRY S [place] [id number] RICHARD Insurance:MEDICARE GENTRYDOB: [place] PART A [facility] [id number] [id number]: [phone]) Number: Repository [phone] () [id number] Date:2018-04-08 04/08/2018 Secondary MERRY S [place] Insurance:ANTHEM GENTRYDOB: [facility] [id number] Hospital Number: Repository [id number] Date:3589-40-67[address], [place] [address]OU: 04/08/2018 Tertiary NOT GIVENUNK [place] Insurance:SELF PAY [facility] ([place], [place]) Number: Effective Repository Date:2018-04-08 04/08/2018 MERRY [id number] Primary MERRY GENTRYDOB: Benji [facility], Insurance:MEDICARE [id number] [address]A[facility]: PART A [facility] Number: Repository () [id number] Date:2018-04-08 04/08/2018 Secondary MERRY GENTRYDOB: [place]ji Insurance:ANTH [id number] Number: Repository [id number] Date:6119-66-55[address]X [address], [place] [address]BF: 04/08/2018 Tertiary NOT GIVENUNK [place] Insurance:SELF PAY [facility] Number: Effective Repository Date:2018-04-08 08/11/2017 Merry Primary MERRY GENTRYDOB: [place]ji [id number] Insurance:MEDICARE [id number] [place] [address]Evv: Number: Repository [id number] () Date:2017-08-11 08/11/2017 Secondary MERRY GENTRYDOB: [place] Insurance:ANTHEM [id number] Community [facility]ository [id number] Date:7052-12-69[address], [place] [address]QF: 08/11/2017 Tertiary NOT GIVENUNK [place] Insurance:SELF PAY [facility] ([place], [place]) Number: Effective Repository Date:2017-08-11
== END 2018-07-22 11:22 | disposition home or self-care (01) ==
PROVIDERS: Emergency Provider Emergency Medicine; Family Provider Family Medicine; PCP Family Medicine
DX: T17.998A Other foreign object in respiratory tract, part unspecified causing other injury, initial encounter (principal); R00.0 Tachycardia, unspecified
CPT/HCPCS: 93005; 99282

== ENCOUNTER → 2018-08-24 08:14 | Outpatient (CLI) | payer MEDICARE, BC, SELFPAY ==
--- NOTE | 2018-08-24 08:37 | RAD_ITS ---
STUDY: X-RAY - LUMBAR SPINE REASON FOR EXAM: Female, 68 years old. Chronic back pain. TECHNIQUE: 5 view(s) of the lumbar spine were obtained. COMPARISON: None FINDINGS: Normal lumbar lordosis. There is a dextroscoliosis of the lumbar spine. There is a normal alignment of the vertebrae. There is multilevel endplate spondylosis of the lumbar vertebrae. There is narrowing of L4-L5 disc space. There is no demonstrated fracture. There is no demonstrated spondylolysis of the pars interarticulares. The soft tissue structures are unremarkable. RAD/Lumbar Spine 2 or 3 Views IMPRESSION: Degenerative changes in the lumbar spine and mild scoliosis. Electronically Signed: Matt Last MD at 23:51 EST Tel , Service support ,
--- NOTE | 2018-08-24 08:47 | RAD_ITS ---
STUDY: X-RAY - THORACIC SPINE REASON FOR EXAM: Female, 68 years old. Chronic back pain. TECHNIQUE: 3 view(s) of the thoracic spine were obtained. COMPARISON: None. FINDINGS: There is an increase in the normal thoracic kyphosis. There is minimal levoscoliosis. There is multilevel endplate spondylosis of the thoracic vertebrae. Normal disc space heights. There is no paravertebral soft tissue swelling. RAD/Thoracic Spine 2 Views IMPRESSION: Mild degenerative changes. Electronically Signed: Matt Last MD at 23:55 EST Tel , Service support ,
[2018-08-24 09:51] LABS: Absolute Lymphocyte Count 2.03 X10^3/ul (0.83-4.51); Absolute Neutrophil Count 2.9 X10^3/uL (2.0-7.7); Basophil# 0.04 X10^3/uL; Basophil% 0.7 % (0-1); Eosinophil# 0.11 X10^3/uL; Hematocrit 41.7 % (37-47); Hemoglobin 14.1 g/dl (12.0-15.0); Lymphocyte # 2.03 X10^3/ul (4.0); Lymphocyte % 36.2 % (19-41); Mean Corp Hgb Conc 33.8 g/gl (32-36); Mean Corpuscular Volume 94.8 fL (81-99); Mean Platelet Vol. 9.6 fl (6.2-12.0); Monocyte# 0.57 X10^3/uL; Monocyte% 10.2 % (0-10); Neutrophil # 2.85 X10^3/uL (2.7-7.7); Neutrophil % 50.7 % (47-70); Platelet Count 278 K/mm3 (150-450); RBC Distribution Width CV 11.8 % (11.6-14.6); RBC Distribution Width SD 40.3 fl (35.1-43.9); White Blood Count 5.6 K/mm3 (4.4-11.0)
[2018-08-24 09:52] LABS: Differential Indicated SCAN CRITERIA MET; POSITIVE COUNT NO; POSITIVE DIFFERENTIAL NO; POSITIVE MORPHOLOGY YES
[2018-08-24 10:21] LABS: Hemoglobin A1c 5.5 % (4.2-6.3)
[2018-08-24 10:24] LABS: ALB/GLOB Ratio 0.9 RATIO (0.9-2.4); AST(SGOT) 17 U/L (15-37); Alanine Aminotransfer ALT/SGPT 19 U/L (13-56); Albumin, Serum 3.7 g/dL (3.2-5.0); Alkaline Phosphatase 35 U/L (45-117); Anion Gap 8 (5-15); BUN 19 mg/dL (7-18); BUN/Creat Ratio 23.8 RATIO (10-20); Calcium,Total 9.1 mg/dL (8.5-10.1); Chloride 104 mmol/L (98-107); Cholesterol 189 mg/dL (200); EST Glomerular Filtration Rate 76 mL/min (>60); Est Glom Filt Rate - Afr Amer 92 mL/min (>60); Globulin 3.9 g/dL (2.2-4.2); Glucose 94 mg/dL (74-106); High Density Lipoprotein 47 mg/dL; Potassium 4.1 mmol/L (3.5-5.1); Protein, Total 7.6 g/dL (6.4-8.2); Sodium Level 141 mmol/L (136-145); Triglycerides 167 mg/dL; Very Low Density Lipoprotein 33 mg/dL (5-40)
== END ==
PROVIDERS: Family Provider Family Medicine; PCP Family Medicine; Referring Provider Family Medicine; Visit Provider Family Medicine
DX: Z00.00 Encounter for general adult medical examination without abnormal findings (principal); E78.2 Mixed hyperlipidemia; M54.5 Low back pain; M54.6 Pain in thoracic spine; G89.29 Other chronic pain
CPT/HCPCS: 36415; 72070; 72100; 80053; 80061; 83036; 85025; 97110; 97162

== ENCOUNTER 2018-11-19 09:00 | Outpatient (RCR) | payer MEDICARE, BC, SELFPAY ==
--- NOTE | 2018-08-24 14:58 | HP.PTEVAL ---
Patient's Visit Information GABRIELLE SCHWARTZ is a 68 year old F referred to Physical Therapy by Masood Cornejo MD with a diagnosis of CHRONIC BACK PAIN-THORACIC LUMBAR. Date of Evaluation: 08/24/18 Physical Therapist: Jeffery Blackwell PT, Cert MDT, OCS - Visit Plan Frequency: 2x /Week Duration: 4 Weeks Plan: MANAUAL THERAPY ,STM AP THORACIC MOBS,POSTURE EX'S,THORACIC MOBLITY PROGRAM ,MODALTIES - Subjective Findings: This 68 y/o female presents to physical therapy with chronic back pain -thoracic /lumbar. Patient has had thoracic many years. Patient located thoracic pain achy symptoms. Agrravated factors housework ,voilin,gardening,sitting using arms. Releiving factors rest on back . Patient seen Neuromuscular Therapist 1-2 month. Denies parathesia/tingling. Coughing/sneezing -. Denies parathesia/tingling.Patient had x-rays. Patient symptoms arent affect by sleeping. Chronic pain affects QOL and housework tasks. SOCIAL: . VOCATION: retired - Pain Bilateral Back Pain Intensity (Out of 10): 3 Pain Intensity Range: 10 - Objective POSTURE: mild thoracic kyphosis. NEURO: denies parathesia/tingling ,reflexes 2/3 C5-6-7,L3-4,-L4-5,L5-S1 ,C/O occassional burning thoracic. PALAPTION: tender UT/levator/scapular/paraspinals. AROM: shoulder flexion/abduction limited 145 degrees. CERVICAL ROM: min loss,lateral flexion mod loss,rotation mod loss,extension WFL. THORACIC ROM: flexion mod loss,extension severe loss,rotation mod mod loss. ASSESSORY MOTION: mod tight AP T1-12 - Special Tests Thoracic Sitting: Flexion - Mechanical Response: No effect Thoracic Sitting: Flexion - Symptoms During Testing: No effect Thoracic Sitting: Flexion - Symptoms After Testing: No effect Thoracic Sitting: Extension - Mechanical Response: No effect Thoracic Sitting: Extension - Symptoms During Testing: Increases Thoracic Sitting: Extension - Symptoms After Testing: Worse L/S Slump test left side: Negative L/S Slump test right side: Negative - Goals Goal 1:: Independant with HEP Goal Time Frame: 4-6 Weeks Goal 2:: Decrease pain thoracic spine by 50% or greater to improve function withADL'S Goal Time Frame: 4-6 Weeks Goal 3:: Patient to improve lumbar ROM for function of recovery . Goal Time Frame: 4-6 Weeks Goal 4:: Patient be able to perform ADL'S ,housework ,gardening and playing violon with min limitations Goal Time Frame: 4-6 Weeks Goal 5:: Patient to improve ELISEO back disablity score by 5 points to improve QOL. Goal Time Frame: 4-6 Weeks - Rehabilitation Potential Physical Therapy Diagnosis: This patient has thoracic chronic pain with poor moblity accesory moblity thoracic ,decrease posture and pain with ADLS' and functional activities /housework tasks thus benifit from skilled PT Rehabilitation Potential: Good - Anticipated Interventions Thank you for the opportunity to evaluate your patient. For Medicare and Medicare HMO plans, please review the plan of care and approve it. It will need to be FAXED BACK to us at [phone] for Medicare purposes. For Medicare only, by signing this I certify the plan of care. Please let me know if there are questions or concerns regarding this plan of care. Physician Signature: Date:
--- NOTE | 2018-11-19 10:09 | HP.PTDCSUM ---
HP - PT D/C Summary It has been my pleasure to treat GABRIELLE SCHWARTZ under orders from Masood Cornejo MD, for the diagnosis of CHRONIC BACK PAIN-THORACIC LUMBAR for a total of 9 visit(s). Discharge Date: 11/19/18 Please see the following information for a summary of their discharge status. - Subjective Subjective: Doing good ..pain is some better . Sore from working outside - Pain Bilateral Back Pain Intensity (Out of 10): 2 - Overall Improvement % Improvement: 25 - Objective Objective/Function: POSTURE: mild/mod thoracic kyphosis. PALAPTION: tender thoracic paraspinals. NEURO: intact. THORACIC ROM: felxion min loss,rotation min loss,extension mod loss. LUMBAR ROM: - Goals Goal 1:: Independant with HEP Goal Progress: Goal Met Goal 2:: Decrease pain thoracic spine by 50% or greater to improve function withADL'S Goal 3:: Patient to improve lumbar ROM for function of recovery . Goal Progress: Goal Met Goal 4:: Patient be able to perform ADL'S ,housework ,gardening and playing violon with min limitations Goal Progress: Goal Met Goal 5:: Patient to improve ELISEO back disablity score by 5 points to improve QOL. Goal Progress: Goal Met - Plan Plan: D/C TO HEP - D/C Information Discharge Comments: HEP If there are questions or concerns regarding this patient's physical therapy, please feel free to call me at [phone]. Thank you for the referral of this patient. Sincerely, Jeffery Blackwell, PT, Cert MDT, OCS
== END 2018-11-19 19:00 | disposition home or self-care (01) ==
LOC: PT 09:00
PROVIDERS: Family Provider Family Medicine; PCP Family Medicine; Referring Provider Family Medicine; Visit Provider Family Medicine
DX: M54.9 Dorsalgia, unspecified (principal); M54.5 Low back pain; G89.29 Other chronic pain
CPT/HCPCS: 97014; 97110; 97140; 97162; G0283

== ENCOUNTER → 2019-09-09 | Outpatient (CLI) | payer MEDICARE, BC, SELFPAY ==
--- NOTE | 2019-09-09 11:20 | RAD_ITS ---
STUDY: X-RAY - PELVIS AND BILATERAL HIPS REASON FOR EXAM: Pain, limited range of motion. TECHNIQUE: AP view of the pelvis.? 2 views of the right hip, and 2 views of the left hip were obtained. COMPARISON: None. FINDINGS: There is a small pelvic phlebolith. Normal bilateral iliac wings, sacroiliac joints and visualized sacrum. Normal bilateral superior and inferior pubic rami. Normal pubic symphysis. Normal bilateral ischial tuberosities. Normal visualized right femoral head. Normal right acetabulum. Normal right hip joint. Normal visualized left femoral head. Normal left acetabulum. There is a small marginal osteophyte at the inferior left femoral head and mild joint space narrowing of the superomedial left hip joint. RAD/Hips B/L min 2 views w/ Pelvis IMPRESSION: Mild left hip arthrosis. Electronically Signed: Panchito Burr MD at 12:43 EST Tel , Service support ,
[2019-09-09 15:42] LABS: Absolute Lymphocyte Count 2.06 X10^3/uL (0.83-4.51); Absolute Neutrophil Count 4.7 X10^3/uL (2.0-7.7); Basophil# 0.06 X10^3/uL; Basophil% 0.8 % (0-1); Eosinophil# 0.05 X10^3/uL; Eosinophils% 0.7 % (0-5); Hematocrit 43.1 % (37-47); Hemoglobin 13.8 g/dL (12.0-15.0); Lymphocyte # 2.06 X10^3/ul (4.0); Lymphocyte % 27.7 % (19-41); Mean Corpuscular Hgb 30.5 pg (27.0-32.0); Mean Corpuscular Volume 95.1 fL (81-99); Mean Platelet Vol. 9.8 fl (6.2-12.0); Monocyte# 0.58 X10^3/uL; Monocyte% 7.8 % (0-10); NRBC Flagged by Analyzer 0 % (0-5); Neutrophil # 4.67 X10^3/uL (2.7-7.7); Neutrophil % 62.9 % (47-70); Platelet Count 296 K/mm3 (150-450); RBC Distribution Width CV 11.9 % (11.6-14.6); RBC Distribution Width SD 41.2 fl (35.1-43.9); Red Blood Count 4.53 M/mm3 (4.2-5.4); White Blood Count 7.4 K/mm3 (4.4-11.0)
[2019-09-09 16:00] LABS: Vitamin B12 535 pg/mL (211-911)
[2019-09-09 16:04] LABS: Cholesterol 221 mg/dL (200); Ferritin 56 ng/mL (8-252); High Density Lipoprotein 50 mg/dL; Triglycerides 156 mg/dL; Very Low Density Lipoprotein 31 mg/dL (5-40)
== END | disposition home or self-care (01) ==
LOC: MTLAB 11:18
PROVIDERS: PCP Family Medicine; Referring Provider Family Medicine; Visit Provider Family Medicine
DX: Z00.00 Encounter for general adult medical examination without abnormal findings (principal); E55.9 Vitamin D deficiency, unspecified; M16.10 Unilateral primary osteoarthritis, unspecified hip; Z78.9 Other specified health status
CPT/HCPCS: 36415; 73521; 80061; 82306; 82607; 82728; 85025

== ENCOUNTER 2021-10-23 14:07 | Outpatient (CLI) | payer MEDICARE, BC, SELFPAY ==
[2021-10-30 20:01] LABS: HPV APTIMA, High Risk Negative (Negative)
[2021-10-30 20:02] LABS: HPV Reflexed? YES, CHARGE PATIENT
== END 2021-10-23 23:59 | disposition home or self-care (01) ==
LOC: OPBI 14:08
PROVIDERS: PCP Family Medicine; Visit Provider Registered Nurse
DX: Z12.4 Encounter for screening for malignant neoplasm of cervix (principal)
CPT/HCPCS: 87624; 88175; G0145

== ENCOUNTER 2021-10-25 08:46 | Outpatient (CLI) | payer MEDICARE, BC, SELFPAY ==
[2021-10-25 09:53] LABS: Hematocrit 41.5 % (37-47); Hemoglobin 13.9 g/dL (12.0-15.0); Mean Corp Hgb Conc 33.5 g/dL (32-36); Mean Corpuscular Hgb 31.5 pg (27.0-32.0); Mean Corpuscular Volume 94.1 fL (81-99); Mean Platelet Vol. 9.6 fl (6.2-12.0); Platelet Count 280 K/mm3 (150-450); RBC Distribution Width CV 11.9 % (11.6-14.6); RBC Distribution Width SD 41.1 fl (35.1-43.9); Red Blood Count 4.41 M/mm3 (4.2-5.4); White Blood Count 5.6 K/mm3 (4.4-11.0)
[2021-10-25 10:14] LABS: ALB/GLOB Ratio 1.1 RATIO (0.9-2.4); AST(SGOT) 21 U/L (15-37); Alanine Aminotransfer ALT/SGPT 27 U/L (13-56); Albumin, Serum 3.7 g/dL (3.2-5.0); Alkaline Phosphatase 32 U/L (45-117); Anion Gap 4 (5-15); BUN 20 mg/dL (7-18); BUN/Creat Ratio 29.6 RATIO (10-20); Calcium,Total 8.8 mg/dL (8.5-10.1); Chloride 107 mmol/L (98-107); Cholesterol 179 mg/dL (200); Creatinine, Serum 0.68 mg/dL (0.55-1.02); EST Glomerular Filtration Rate 92 mL/min (>60); Est Glom Filt Rate - Afr Amer 111 mL/min (>60); Ferritin 41 ng/mL (8-252); Globulin 3.5 g/dL (2.2-4.2); Glucose 92 mg/dL (74-106); High Density Lipoprotein 45 mg/dL; Potassium 4.3 mmol/L (3.5-5.1); Protein, Total 7.2 g/dL (6.4-8.2); Sodium Level 140 mmol/L (136-145); Triglycerides 144 mg/dL; Very Low Density Lipoprotein 29 mg/dL (5-40)
[2021-10-25 10:27] LABS: Vitamin D,25 Hydroxy 27.9 ng/mL
== END 2021-10-25 23:59 | disposition home or self-care (01) ==
PROVIDERS: PCP Family Medicine; Referring Provider Family Medicine; Visit Provider Registered Nurse
DX: E55.9 Vitamin D deficiency, unspecified (principal); E78.5 Hyperlipidemia, unspecified; Z78.9 Other specified health status
CPT/HCPCS: 36415; 80053; 80061; 82306; 82728; 85027

== ENCOUNTER → 2021-11-01 | Outpatient (CLI) | payer MEDICARE, BC, SELFPAY ==
--- NOTE | 2021-11-01 08:46 | BI_ITS ---
MAMMOGRAPHY - BILATERAL SCREENING REASON FOR EXAM: Female, 71 years old. Routine annual screening examination. PERTINENT HISTORY: Non-contributory. TECHNIQUE: Digital bilateral breast reyna (3D mammographic acquisition) in the CC and MLO projections. 2-D mediolateral oblique (MLO) and craniocaudad (CC) views of both breasts were obtained. CAD: Full Field Digital Mammography with Computer Added Detection was performed. COMPARISON: Comparison is made with prior study dated 06/17/2017 and 01/17/2016. FINDINGS: Breast Composition: There are scattered areas of fibroglandular density. There are no dominant masses or suspicious calcifications. No other significant abnormalities are identified. There has been no significant change since the prior study. BI/SCRN MAMM (CAD)W/REYNA BILAT IMPRESSION: Stable bilateral screening mammogram. Yearly follow-up mammogram recommended. (A) ASSESSMENT CATEGORY: BIRADS Category 1: Negative. A letter regarding these results will be sent to the patient by the facility within 30 days. Approximately 10% of breast cancers are not detected by mammography. A normal mammogram should not delay biopsy of a clinically suspicious abnormality. [id number] Electronically Signed: Kobi Hassan MD at 9:32 EDT ,
== END | disposition home or self-care (01) ==
LOC: OPBI 08:44
PROVIDERS: PCP Family Medicine; Visit Provider Registered Nurse
DX: Z12.31 Encounter for screening mammogram for malignant neoplasm of breast (principal)
CPT/HCPCS: 77063; 77067

== ENCOUNTER 2025-03-14 19:13 | Emergency (ER) | payer MEDICARE, BC, SELFPAY ==
[2025-03-14 19:15] VITALS: BP 173/67; PULSE 112; RESP 18; TEMP 37; O2SAT 99; BMI 22.6
--- NOTE | 2025-03-14 19:59 | EKG12_ITS ---
Test Reason : PALPS Blood Pressure : */* mmHG Vent. Rate : 96 BPM Atrial Rate : 96 BPM P-R Int : 146 ms QRS Dur : 74 ms QT Int : 356 ms P-R-T Axes : 69 69 79 degrees QTcB Int : 449 ms Normal sinus rhythm Nonspecific ST abnormality Abnormal ECG Confirmed by Garo Parr ([id number]), editor managing newspaper AIRAM VALLE ([id number]) on 03/15/2025 10:24:53 AM Referred By: Confirmed By: Garo Parr
[2025-03-14 20:18] VITALS: BP 175/76; PULSE 91; RESP 14; O2SAT 100
[2025-03-14 20:26] LABS: Hematocrit 39.7 % (37-47); Hemoglobin 13.4 g/dL (12.0-15.0); Immature Granulocytes Count 0.040 X10^3/uL (0.0-0.0); Mean Corp Hgb Conc 33.8 g/dL (32-36); Mean Corpuscular Volume 91.3 fL (81-99); Mean Platelet Vol. 9.0 fl (6.2-12.0); NRBC Flagged by Analyzer 0 % (0-5); Platelet Count 330 K/mm3 (150-450); RBC Distribution Width CV 11.6 % (11.6-14.6); RBC Distribution Width SD 38.8 fl (35.1-43.9); Red Blood Count 4.35 M/mm3 (4.2-5.4); White Blood Count 10.9 K/mm3 (4.4-11.0)
[2025-03-14 20:35] LABS: Prothrombin Time (Protime)PT. 12.7 SECONDS (11.7-14.9)
[2025-03-14 20:36] LABS: Partial Thromboplast Time 24.1 Seconds (24.1-36.2)
--- NOTE | 2025-03-14 20:42 | RAD_ITS ---
PROCEDURE: CHEST PA AND LATERAL 03/14/2025 REASON FOR EXAM: CHEST PAIN TECHNIQUE: Procedure Code: RADCXR Modality: DX Procedure: CHEST PA AND LATERAL COMPARISON: 04/08/2018 FINDINGS: Lungs/Pleura: Clear. No pneumothorax or pleural effusion. Heart/Mediastinum: Normal in size. Aortic atherosclerotic calcification. Bones/Soft tissues: Mild degenerative changes of the spine. Left humeral head anchor screws. RAD/Chest PA and Lateral IMPRESSION: No acute cardiopulmonary disease. Reading Location: [facility]
[2025-03-14 20:52] VITALS: BP 125/66
[2025-03-14] MEDS: 0.9% Normal Saline (1000mL) 1,000 ML 999 ML IV (21:01)
[2025-03-14 21:02] VITALS: BP 174/67; PULSE 99; RESP 16; O2SAT 98
[2025-03-14 21:12] LABS: Anion Gap 14 (5-15); BUN 26 mg/dL (4-19); BUN/Creat Ratio 34.8 RATIO (10-20); Calcium,Total 9.6 mg/dL (7.6-11.0); Carbon Dioxide 24.2 mmol/L (21.0-32.0); Chloride 99 mmol/L (98-108); Estimated Creatinine Clearance 57.20 ml/min (50-250); Glucose 160 mg/dL (70-99); Magnesium 2.3 mg/dL (1.5-2.2); Potassium 3.9 mmol/L (3.3-5.1); Pro- Brain NATRIURETIC PEPTIDE 157 pg/mL (<=900); Troponin T High Sensitivity 8 ng/L (<=14)
[2025-03-14 21:35] VITALS: O2SAT 99
[2025-03-14 21:47] LABS: D-Dimer Quantitative (DVT/PE) < 0.27 FEU/ug/m (0.27-0.49)
[2025-03-14 22:26] VITALS: BP 149/70; PULSE 93; RESP 10; TEMP 36.9; O2SAT 99
--- NOTE | 2025-03-14 22:28 | ED.VIS.CHEST ---
HPI History of Present Illness Chief Complaint: Palpitations Narrative Narrative: Patient is a 74-year-old female on no medications who presents to the emergency department with concern for elevated heart rate. She states that she felt like her heart rate has been high since being diagnosed with COVID which has been for 2 weeks. Patient notes that she felt like her symptoms flared again this evening prompting her to come here for further evaluation management. Patient denies any history of blood clots denies any history of travel. PFSH PFSH Home Medications ?Medication ?Instructions ?Recorded ?Last Taken ?Type cholecalciferol (vitamin D3) 50 2,000 unit PO DAILY 04/08/18 Unknown History mcg (2,000 unit) capsule mecobalamin (vitamin B12) 1,000 1,000 mcg sublingual DAILY 04/08/18 Unknown History mcg disintegrating tablet,sublingual Vitamin B6 1 cap PO DAILY 07/22/18 Unknown History Allergy/AdvReac Type Severity Reaction Status Date / Time clindamycin Allergy Hives Verified 03/14/25 19:17 Family History Mother Heart disease Syncope, PPM Grandfather CAD (coronary artery disease) Surgical History History of tonsillectomy History of dilatation and curettage History of hysteroscopy Social History Smoking Status: Never smoker ROS ROS ED ROS Narrative Constitutional: Denies any fevers, chills, headaches Eyes: Denies double vision Cardiovascular: Planes of palpitations denies chest pain Respiratory: Denies coughing wheezing shortness of breath Abdomen: Denies abdominal pain nausea vomit diarrhea : Denies urinary symptoms Neurological: Denies any numbness, weakness, tingling Musculoskeletal: Denies back pain Skin: Denies any rashes or lesions EXAM Physical Exam Narrative Exam Narrative: General: Patient lying in bed rest comfortably did not appear to be acute distress Head: Atraumatic, normocephalic Eyes: PERRL bilaterally, EOMI bilaterally, no conjunctival injection noted Neck: Soft, supple, trachea midline Cardiovascular: Patient was tachycardic with a regular rhythm Respiratory: Clear to auscultation bilaterally Abdomen: Soft, nondistended, tender to palpation Extremities: +5/5 strength noted in the bilateral upper and lower extremity, radial pulse +2/4 in the bilateral extremities Neurological: Patient following commands knew that she was at [facility] the year is 2024 Skin: Warm, dry contact no rashes or lesions noted Const Vital Signs: 03/14/25 19:15 03/14/25 20:18 03/14/25 20:18 Temperature 98.6 F Temperature Source Oral Pulse Rate 112 H 91 Respiratory Rate 18 14 Blood Pressure 173/67 H 175/76 H Blood Pressure Mean 102 109 Pulse Ox 99 100 Oxygen Delivery Method Room Air Room Air 03/14/25 20:52 03/14/25 21:02 03/14/25 22:26 Temperature Temperature Source Pulse Rate 99 93 Respiratory Rate 16 10 L Blood Pressure 125/66 H 174/67 H 149/70 H Blood Pressure Mean 85 102 96 Pulse Ox 98 99 Oxygen Delivery Method Room Air 03/14/25 22:26 Temperature 98.4 F Temperature Source Pulse Rate 93 Respiratory Rate 10 L Blood Pressure 149/70 H Blood Pressure Mean 96 Pulse Ox 99 Oxygen Delivery Method MDM MDM MDM Narrative Medical decision making narrative: Patient is a 74-year-old female who presents to the emergency department concern for palpitations and elevated heart rate. On the differential diagnose includes but not limited to electrolyte abnormality, pulmonary embolism, cardiac arrhythmia. Once workup is obtained reviewed she will be reevaluated. Patient be given IV fluids as well. Patient's CBC reviewed showed no evidence leukocytosis white blood count normal at 10.9, hemoglobin 13.4, plate count of 330. Patient's INR normal at 0.9, D-dimer is less than 0.27. Patient sodium is 137, potassium normal 3.9, creatinine 0.74. Patient's troponin was 8 EKG reviewed showed sinus rhythm with a rate of 96 bpm KS interval 146. Patient's proBNP normal at 157, TSH normal at 1.71. Patient's chest x-ray reviewed by myself and by radiology showed no acute cardiopulmonary processes. Patient ambulated well here in the emergency department. Did discuss results with the patient and family ember at bedside they would like to go home at this point time. They are encouraged to follow-up with her primary care physician outpatient and return with worsening symptoms or concerns. They are agreeable to plan all question concerns answered she was discharged home in stable condition. Lab Data Labs: Laboratory Results - last 24 hr 03/14/25 20:14 WBC 10.9 RBC 4.35 Hgb 13.4 Hct 39.7 MCV 91.3 MCH 30.8 MCHC 33.8 RDW Std Deviation 38.8 RDW Coeff of Kallie 11.6 Plt Count 330 MPV 9.0 Immature Gran % (Auto) 0.400 Neut % (Auto) 58.4 Lymph % (Auto) 30.4 [place] % (Auto) 8.7 Eos % (Auto) 1.5 Baso % (Auto) 0.6 Absolute Neuts (auto) 6.3 Absolute Lymphs (auto) 3.30 Nucleated RBC % 0 PT 12.7 INR 0.9 APTT 24.1 D-Dimer Quant (PE/DVT) < 0.27 L Sodium 137 Potassium 3.9 Chloride 99 Carbon Dioxide 24.2 Anion Gap 14 BUN 26 H Creatinine 0.74 Estim Creat Clear Calc 57.20 Est GFR (MDRD) Non-Af 86 BUN/Creatinine Ratio 34.8 H Glucose 160 H Calcium 9.6 Magnesium 2.3 H Troponin T High Sens 8 NT pro BNP II 157 TSH 1.710 Radiography Diagnostic Testing: Clinical Impression(s) from Imaging Studies Chest X-Ray 03/14/25 20:42 IMPRESSION: No acute cardiopulmonary disease. Reading Location: [facility] Discharge Plan Triage Chief Complaint: Palpitations ED Provider: Glenroy Jose Dx/Rx/DC Orders Clinical Impression: Palpitations, History of COVID-19 Prescriptions: No Action cholecalciferol (vitamin D3) 2,000 unit capsule 2,000 unit PO DAILY mecobalamin (vitamin B12) 1,000 mcg tablet,disintegrating 1,000 mcg SUBLINGUAL DAILY Vitamin B6 1 cap PO DAILY Primary Care Provider: Masood Cornejo Referrals: Masood Cornejo MD [Primary Care Provider] - Activity Restrictions/Additional Instructions: Keep a close eye in your blood pressure follow-up with your doctor on this. Your blood work did not show any acute findings today your chest x-ray is normal as well as your EKG. Return with worsening symptoms or any other concerns Print Language: Zambian Disposition Disposition: Home, Self Care
== END 2025-03-14 22:39 | disposition home or self-care (01) ==
PROVIDERS: Emergency Provider Emergency Medicine; PCP Family Medicine; Visit Provider Emergency Medicine
DX: R00.2 Palpitations (principal); R07.9 Chest pain, unspecified; Z86.16 Personal history of COVID-19
CPT/HCPCS: 71046; 80048; 83735; 83880; 84443; 84484; 85025; 85379; 85610; 85730; 93005; 96360; 99284; A4216

== ENCOUNTER → 2025-03-15 | Outpatient (CLI) | payer MEDICARE, BC, SELFPAY ==
--- NOTE | 2025-03-15 15:19 | BI_ITS ---
EXAM: SCRN MAMM (CAD)W/REYNA BILAT DATE: 03/15/2025 CLINICAL HISTORY: F, Age 74 y/o , SCREENING No family history. TECHNIQUE: Procedure Code: BISMWCADBTOM Modality: MG Procedure: SCRN MAMM (CAD)W/REYNA BILAT COMPARISON: Prior exam(s) dated November 01, 2021.. FINDINGS: TISSUE DENSITY: There are scattered areas of fibroglandular density. Bilateral Breast Mammographic Findings: No significant masses, calcifications or other abnormalities are identified. No suspicious masses, areas of developing architectural distortion, or suspicious calcifications. There has been no significant interval change. BI/SCRN MAMM (CAD)W/REYNA BILAT IMPRESSION: Stable bilateral screening mammogram. OVERALL FINAL ASSESSMENT BI-RADS 1: NEGATIVE. RECOMMENDATION: Routine annual follow-up in 1 Year A letter with findings and recommendations will be mailed to the patient. Reading Location: [facility]
== END | disposition home or self-care (01) ==
PROVIDERS: PCP Family Medicine; Referring Provider Family Medicine; Visit Provider Family Medicine
DX: Z12.31 Encounter for screening mammogram for malignant neoplasm of breast (principal)
CPT/HCPCS: 77063; 77067

== ENCOUNTER → 2025-04-13 | Outpatient (CLI) | payer MEDICARE, BC, SELFPAY ==
[2025-04-13 18:18] LABS: Hematocrit 43.1 % (37-47); Hemoglobin 14.6 g/dL (12.0-15.0); Immature Granulocytes Count 0.030 X10^3/uL (0.0-0.0); Mean Corp Hgb Conc 33.9 g/dL (32-36); Mean Corpuscular Volume 90.5 fL (81-99); Mean Platelet Vol. 10.4 fl (6.2-12.0); NRBC Flagged by Analyzer 0 % (0-5); Platelet Count 328 K/mm3 (150-450); RBC Distribution Width CV 11.9 % (11.6-14.6); RBC Distribution Width SD 39.5 fl (35.1-43.9); Red Blood Count 4.76 M/mm3 (4.2-5.4); White Blood Count 11.0 K/mm3 (4.4-11.0)
[2025-04-13 19:01] LABS: AST(SGOT) 20 U/L (<=31); Alanine Aminotransfer ALT/SGPT 15 U/L (<=34); Albumin, Serum 4.4 g/dL (3.4-4.8); Alkaline Phosphatase 36 U/L (35-104); Anion Gap 14 (5-15); BUN 26 mg/dL (4-19); BUN/Creat Ratio 38.8 RATIO (10-20); Calcium,Total 9.7 mg/dL (7.6-11.0); Carbon Dioxide 23.9 mmol/L (21.0-32.0); Chloride 100 mmol/L (98-108); Ferritin 156 ng/mL (22-378); Globulin 3.1 g/dL (2.2-4.2); Glucose 101 mg/dL (70-99); Potassium 4.4 mmol/L (3.3-5.1); Vitamin B12 555 pg/mL (180-914); Vitamin D,25 Hydroxy 18.9 ng/mL (30-100)
[2025-04-15 14:08] LABS: EBV Acute VCA IgM < 36.0 U/mL (0.0-35.9); EBV-VCA IgG > 600.0 U/mL (0.0-17.9)
== END | disposition home or self-care (01) ==
LOC: MTLAB 15:08
PROVIDERS: PCP Family Medicine; Referring Provider Family Medicine; Visit Provider Family Medicine
DX: E55.9 Vitamin D deficiency, unspecified (principal); Z78.9 Other specified health status; R00.2 Palpitations
CPT/HCPCS: 36415; 80053; 82306; 82607; 82728; 85025; 86663; 86664; 86665

== ENCOUNTER → 2025-05-10 | Outpatient (CLI) | payer MEDICARE, BC, SELFPAY ==
--- NOTE | 2025-05-10 12:38 | ECHOD_ITS ---
Reason For Study ECHO/Echo Complete
== END | disposition home or self-care (01) ==
PROVIDERS: PCP Family Medicine; Referring Provider Family Medicine; Visit Provider Family Medicine
DX: R00.2 Palpitations (principal)
CPT/HCPCS: 93306